=== PATIENT | male | born 2000 | race African-American/Black ===

== ENCOUNTER 2024-07-26 00:03 | Emergency (ER) | payer OTHER ==
[~2024-07-26] VITALS: Ht 182.9 cm; Wt 65.8 kg
[2024-07-26] MEDS ORDERED: ACETAMINOPHEN ES 500 MG TABLET ONE (02:14)
[2024-07-26] MEDS: ACETAMINOPHEN ES 500 MG TABLET PO ONE (02:18)
[2024-07-26] MEDS ORDERED: CYCL5TAB PO (02:27)
[2024-07-26 02:34] VITALS: BP 136/82; TEMP 98; O2SAT 99
== END 2024-07-26 02:35 | disposition home or self-care (01) ==
LOC: ER 00:09
DX: R51.9 Headache, unspecified (principal); M54.50 Low back pain, unspecified; V43.52XA Car driver injured in collision with other type car in traffic accident, initial encounter; Y93.89 Activity, other specified; Y92.410 Unspecified street and highway as the place of occurrence of the external cause; Y99.8 Other external cause status